=== PATIENT | male | born 1935 | race Caucasian/White ===

== ENCOUNTER 2018-10-25 09:17 | Day surgery (SDC) | payer MEDICARE, OTHER ==
[~2018-10-25] VITALS: Ht 172.7 cm; Wt 72.2 kg
[~2018-10-25 09:17] MED LIST: ACET325 PO; ATOR10 PO; ATOR20 PO; Cardizem CD 12120 MG PO; DIGO.125 PO; DILT120ERA PO; ELIQUIS2.5 MG PO; ESOM20 PO; FURO40 PO; HYDACE5 PO; HYDCHL12.5 PO; HYDROCODON-ACE1 EAC4 PO; Kaon-Cl40 MEQ/15 PO; LEVO750 PO; METO25 PO; NIFE20 PO; POTCHL20ER PO; Phenergan25 M1 PO; Prinivil10 MG PO; SPIR25 PO; Stool Softener100 MG PO; VICODIN ES 7.51 EACH PO; Ventolin Soln3 ML INH; XARELTO20 MG PO; ZOLP5; ZOLP5 PO; [UNRECOGNIZED DRUG - REMARK]; [UNRECOGNIZED DRUG - REMARK]
--- NOTE | 2018-10-25 09:56 | NUR ---
PT ADMITTED TO [facility]. AGREES WITH PLANNED SURGERY. LUNG SOUNDS CLEAR.
--- NOTE | 2018-10-25 14:17 | NUR ---
Discharge instructions reviewed with patient. Patient verbalizes understanding. Copy given to patient to take home. Patient up to Ambulate independently. Gait steady. ABLE TO URINATE WITHOUT ISSUE.Discharged via wheelchair to private car for ride home.
== END 2018-10-26 22:42 | disposition home or self-care (01) ==
LOC: ORSCMMR 09:17 → ORD 10:30 → ORSCMMR 10:30
PROVIDERS: Surgery
PROC: 0YU50JZ Supplement Right Inguinal Region with Synthetic Substitute, Open Approach (ICD-10-PCS; principal; 2018-10-25 10:30)
DX: K40.90 Unilateral inguinal hernia, without obstruction or gangrene, not specified as recurrent (principal); I10 Essential (primary) hypertension; I48.91 Unspecified atrial fibrillation; Z79.01 Long term (current) use of anticoagulants; I25.10 Atherosclerotic heart disease of native coronary artery without angina pectoris; Z87.891 Personal history of nicotine dependence; G62.9 Polyneuropathy, unspecified; Z79.899 Other long term (current) drug therapy
CPT/HCPCS: A9270-GY; C1781; J0690; J1100; J2405; J2704; J3010; J7120

== ENCOUNTER → 2018-12-29 | Outpatient (CLI) | payer MEDICARE, OTHER | END | disposition home or self-care (01) | LOC: LAB SHORT 07:43 → PLD 07:43 | DX: L57.0 Actinic keratosis (principal); L73.9 Follicular disorder, unspecified | CPT/HCPCS: 88305; 88312 ==

== ENCOUNTER 2020-08-01 23:58 | Emergency (ER) | payer MEDICARE, OTHER ==
[~2020-08-01] VITALS: Ht 177.8 cm; Wt 72.6 kg
[2020-08-02 00:11] LABS: BASOPHILS ABSOLUTE AUTO 0.05 K/mm3 (0.00-0.23); BASOPHILS PERCENT AUTO 1 % (0-2); EOSINOPHILS ABSOLUTE AUTO 0.49 K/mm3 (0.00-0.68); EOSINOPHILS PERCENT AUTO 8 % (0-6); Hematocrit 40.2 % (37.0-53.0); Hemoglobin 13.5 g/dL (13.5-17.5); IMMATURE GRAN ABSOLUTE AUTO 0.01 K/mm3 (0.00-0.10); IMMATURE GRAN PERCENT AUTO 0 % (0-1); LYMPHOCYTES ABSOLUTE AUTO 2.01 K/mm3 (0.84-5.20); LYMPHOCYTES PERCENT AUTO 32 % (21-46); MONOCYTES ABSOLUTE AUTO 0.64 K/mm3 (0.16-1.47); MONOCYTES PERCENT AUTO 10 % (4-13); Mean Corpuscular HGB 33.8 pg (26.0-34.0); Mean Corpuscular HGB Conc 33.6 g/dL (31.5-36.5); Mean Corpuscular Volume 101 fL (80-100); Mean Platelet Volume 10.5 fL (9.1-12.4); NEUTROPHILS ABSOLUTE AUTO 3.11 K/mm3 (1.96-9.15); NEUTROPHILS PERCENT AUTO 49 % (41-73); Platelet Count 233 K/mm3 (150-400); RDW Coefficient Variation 12.2 % (11.7-14.2); RDW Standard Deviation 45.4 fL (35.1-46.3); White Blood Cell Count 6.31 K/mm3 (4.00-11.30)
[2020-08-02 00:27] LABS: International Normalized Ratio 1.02; Prothrombin Time Results 10.9 Sec (9.7-11.5)
[2020-08-02 00:35] LABS: Alanine Aminotransfer (ALT/SGP 21 U/L (12-78); Albumin, Blood 3.6 g/dL (3.4-5.0); Albumin/Globulin Ratio 0.9 (0.8-1.8); Alk Phos 80 U/L (50-136); Anion Gap 6 mmol/L (6-16); Aspartate Aminotrans (AST/SGOT 28 U/L (12-37); Bilirubin, Total 0.4 mg/dL (0.1-1.0); Blood Urea Nitrogen 11 mg/dL (8-24); Bun/Creatinine Ratio 12.6 (12.0-20.0); CO2, Blood 26 mmol/L (21-32); Calcium, Blood 8.5 mg/dL (8.5-10.1); Chloride, Blood 110 mmol/L (98-108); Creatinine, Blood 0.88 mg/dL (0.60-1.20); Ethanol (Alcohol), Blood, Med 185 mg/dL; Globulin, Blood 3.8 g/dL (2.2-4.0); Glomerular Filtration Rate >60 (60-); Glucose, Blood 92 mg/dL (70-99); Potassium, Blood 4.4 mmol/L (3.5-5.5); Sodium, Blood 142 mmol/L (136-145); Total Protein, Blood 7.4 g/dL (6.4-8.2); Troponin I <0.015 ng/mL (0.000-0.040)
== END 2020-08-02 02:10 | disposition home or self-care (01) ==
LOC: ER 23:58
PROVIDERS: Emergency Medicine
DX: S06.9X9A Unspecified intracranial injury with loss of consciousness of unspecified duration, initial encounter (principal); S01.01XA Laceration without foreign body of scalp, initial encounter; F10.129 Alcohol abuse with intoxication, unspecified; Z79.899 Other long term (current) drug therapy; Z88.8 Allergy status to other drugs, medicaments and biological substances; Z79.01 Long term (current) use of anticoagulants; Z87.891 Personal history of nicotine dependence; W18.30XA Fall on same level, unspecified, initial encounter; Y90.6 Blood alcohol level of 120-199 mg/100 ml
CPT/HCPCS: 12002; 36415; 70450; 72125; 80053; 84484; 85025; 85610; 90471; 90714; 93005; 93010; 99284-25; G0480

== ENCOUNTER 2021-07-18 10:49 | Inpatient (IN) | payer MEDICARE, OTHER ==
[~2021-07-18] VITALS: Ht 172.7 cm; Wt 62.7 kg
[2021-07-18 11:48] LABS: BASOPHILS ABSOLUTE AUTO 0.03 K/mm3 (0.00-0.23); BASOPHILS PERCENT AUTO 0 % (0-2); EOSINOPHILS ABSOLUTE AUTO 0.06 K/mm3 (0.00-0.68); EOSINOPHILS PERCENT AUTO 1 % (0-6); Hematocrit 45.1 % (37.0-53.0); Hemoglobin 15.2 g/dL (13.5-17.5); IMMATURE GRAN ABSOLUTE AUTO 0.06 K/mm3 (0.00-0.10); IMMATURE GRAN PERCENT AUTO 1 % (0-1); LYMPHOCYTES ABSOLUTE AUTO 1.58 K/mm3 (0.84-5.20); LYMPHOCYTES PERCENT AUTO 14 % (21-46); MONOCYTES ABSOLUTE AUTO 1.21 K/mm3 (0.16-1.47); MONOCYTES PERCENT AUTO 11 % (4-13); Mean Corpuscular HGB 33.1 pg (26.0-34.0); Mean Corpuscular HGB Conc 33.7 g/dL (31.5-36.5); Mean Corpuscular Volume 98 fL (80-100); Mean Platelet Volume 11.5 fL (9.1-12.4); NEUTROPHILS ABSOLUTE AUTO 8.57 K/mm3 (1.96-9.15); NEUTROPHILS PERCENT AUTO 75 % (41-73); Platelet Count 279 K/mm3 (150-400); RDW Coefficient Variation 13.3 % (11.7-14.2); RDW Standard Deviation 48.4 fL (35.1-46.3); Red Blood Cell Count 4.59 M/mm3 (4.30-5.90); White Blood Cell Count 11.51 K/mm3 (4.00-11.30)
[2021-07-18 12:08] LABS: Albumin, Blood 3.9 g/dL (3.4-5.0); Bilirubin, Total 0.7 mg/dL (0.1-1.0); Bun/Creatinine Ratio 39.1 (12.0-20.0); Calcium, Blood 8.9 mg/dL (8.5-10.1); Creatinine, Blood 3.45 mg/dL (0.60-1.20); Globulin, Blood 4.1 g/dL (2.2-4.0); Potassium, Blood 5.1 mmol/L (3.5-5.5)
[2021-07-18 13:46] LABS: Source, Urine Clean Catch
[2021-07-18 13:50] LABS: Appearance, Urine Clear (Clear); Bilirubin, Urine Neg (Neg); Blood, Urine Neg (Neg); Color, Urine Yellow (P-Yellow); Glucose Qualitative, Urine Neg (Neg); Ketones, Urine Neg (Neg); Leukocyte Esterase, Urine Neg (Neg); Nitrite, Urine Neg (Neg); Protein, Urine Neg (Neg); Specific Gravity, Urine 1.025 (1.003-1.022); Urobilinogen, Urine NORM (Normal)
[2021-07-18] MEDS ORDERED: SERT50 PO (18:09)
[2021-07-18 21:05] LABS: Campylobacter Sp Not Detected (NOT DETECT); Cryptosporidium Not Detected (NOT DETECT); Cyclospora Cayetanensis Not Detected (NOT DETECT); E. Coli O157 Not Detected (NOT DETECT); Entamoeba Histolytica Not Detected (NOT DETECT); Enteroaggregative E. coli-EAEC Not Detected (NOT DETECT); Enteropathogenic E. coli-EPEC Not Detected (NOT DETECT); Enterotoxigenic E. coli-ETEC Not Detected (NOT DETECT); Giardia Lamblia Not Detected (NOT DETECT); Plesiomonas Shigelloides Not Detected (NOT DETECT); Salmonella Sp Not Detected (NOT DETECT); Shiga Toxin-prod E. coli-STEC Not Detected (NOT DETECT); Shigella/Enteroin E. coli-EIEC Not Detected (NOT DETECT); Vibrio Cholerae Not Detected (NOT DETECT); Vibrio Sp Not Detected (NOT DETECT); Yersinia Enterocolitica Not Detected (NOT DETECT)
[2021-07-18 21:06] LABS: Adenovirus F 40/41 Not Detected (NOT DETECT); Astrovirus Not Detected (NOT DETECT); Norovirus GI/GII Not Detected (NOT DETECT); Rotavirus A Not Detected (NOT DETECT); Sapovirus Not Detected (NOT DETECT)
[2021-07-18 21:35] LABS: Influenza A, PCR NEGATIVE (NEGATIVE); Influenza B, PCR NEGATIVE (NEGATIVE); Resp Syncytial Virus, PCR NEGATIVE (NEGATIVE); SARS-Cov-2 (COVID-19) PCR, MMC NEGATIVE (NEGATIVE)
--- NOTE | 2021-07-18 23:15 | NUR ---
CARE ASSUMPTION: PATIENT ARRIVED ON UNIT AT 1800. RECEIVED REPORT FROM SIGRID GOLDMAN RN. COMPLETED COVID-19 SWAB, NORMAL SALINE RUNNING TO IV @100 MLS/HR. PATIENT A&O X4. BED ALARM SET PATIENT HAS HISTORY OF FALLS. PATIENT DENIES SOB AND CHEST PAIN. PATIENT ON CIWA PROTOCOL - OBTAINED ORDER FOR BEER WITH TRAYS. CALL LIGHT IN REACH.
--- NOTE | 2021-07-19 04:23 | NUR ---
SHIFT SUMMARY: PATIENT DENIES SOB, CHEST PAIN, N/V/D. VSS T/O SHIFT, THOUGH HR <60 BPM AT TIMES R/T CHRONIC AFIB. PLEASANT AND COOPERATIVE WITH CARE. SPOUSE OF 54 YEARS IN MAY AND PATIENT IS PROCESSING HIS GRIEF - SUPPORT SYSTEM INCLUDES HIS DAUGHTER AND HIS NEIGHBOR COUPLE WHO BROUGHT HIM TO HOSPITAL. THIAMINE BAG 1 OF 3 COMPLETED ~0300 AND NORMAL SALINE IS RUNNING PER EMAR. LEFT ARM IN ARM BOARD TO KEEP AC IV FROM OCCLUDING. BED ALARM IS ON PATIENT HAS RECENT FALL HISTORY. PATIENT IS MODERATE DAILY DRINKER. WILL CONTINUE TO MONITOR AND REPORT TO ONCOMING RN.
[2021-07-19 04:35] LABS: Hematocrit 39.5 % (37.0-53.0); Hemoglobin 13.5 g/dL (13.5-17.5); Mean Corpuscular HGB 33.3 pg (26.0-34.0); Mean Corpuscular HGB Conc 34.2 g/dL (31.5-36.5); Mean Corpuscular Volume 97 fL (80-100); Mean Platelet Volume 11.8 fL (9.1-12.4); Platelet Count 220 K/mm3 (150-400); RDW Standard Deviation 46.8 fL (35.1-46.3); Red Blood Cell Count 4.06 M/mm3 (4.30-5.90); White Blood Cell Count 8.05 K/mm3 (4.00-11.30)
[2021-07-19 05:09] LABS: Anion Gap 10 mmol/L (6-16); Blood Urea Nitrogen 123 mg/dL (8-24); Bun/Creatinine Ratio 48.8 (12.0-20.0); CHOL/HDL RATIO 2.3; CO2, Blood 16 mmol/L (21-32); Calcium, Blood 7.9 mg/dL (8.5-10.1); Chloride, Blood 108 mmol/L (98-108); Cholesterol 111 mg/dL (50-200); Creatinine, Blood 2.52 mg/dL (0.60-1.20); Glomerular Filtration Rate 24 (60-); Glucose, Blood 107 mg/dL (70-99); HDL Cholesterol 49 mg/dL (>39); LDL/HDL RATIO 0.8; Low Density Lipoprotein Chol 38 mg/dL (0-110); Potassium, Blood 4.3 mmol/L (3.5-5.5); Sodium, Blood 134 mmol/L (136-145); Triglycerides 121 mg/dL (30-160); Very Low Density Lipoprot Chol 24 mg/dL (6-32)
--- NOTE | 2021-07-19 11:17 | NUR ---
Patient is sitting up in bed and alert. Patient immediately tells me about the events that led to his hospitalization and how the recent of his spouse contributed to his decline. 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 We explore sources of meaning, purpose and pt's resources and coping skills. We discuss his Tenriism beliefs and how he desires to get back to that source of strength in his life. I normalize pt's bereavement experience, encourage self-care, reinforce helpful attitudes and perspectives and provide therapeutic listening, grief support, spiritual guidance, gentle apprise counselor and prayer. Pt responds well and shows signs of increased hope and a resolve for healthier habits in his life. I will continue to remain available to patient and family.
[2021-07-19 12:28] LABS: Digoxin (Lanoxin) 0.42 ug/mL (0.80-2.00)
--- NOTE | 2021-07-19 18:36 | NUR ---
SHIFT SUMMARY A/O X4 AND COOPERATIVE OF CARE. PT CALLS APPROPITELY AND IS ABLE TO EXPRESS NEEDS. VSS THROUGHOUT SHIFT WITH O2 SATS >97% ON RA. NO REPORT OF CHEST PAIN/PRESSURE THROUGHOUT SHIFT. NO REPORT OF SOB/DYPNEA THROUGHOUT SHIFT. PT TO BE NPO AFTER MIDNIGHT FOR ENDOSCOPY AND XRAY OF UPPER GI TOMORROW. PT UP TO BEDSIDE COMMODE TODAY, STANDBY ASSIST, TOLERATED WELL. PT RECIEVING A BEER WITH MEALS (SIPPING ON BEER THROUGHOUT DAY), PT BEING MONITORED FOR ETOH W/D, ASYMPTOMATIC AT THIS TIME.
--- NOTE | 2021-07-19 20:50 | NUR ---
CALLED DR. CLARK. NOTIFIED HIM THE PLAN IS FOR PATIENT TO HAVE AN UPPER GI SCOPE WITH SMALL BOWEL FOLLOW THROUGH TOMORROW ALTHOUGH IT IS NOT FOR SURE. PATIENT IS TO RECEIVE ELIQUIS TONIGHT. PATIENT HAS AFIB, NO HX MECHANICAL VALVE. ORDERS RECEIVED TO HOLD ELIQUIS TONIGHT UNLESS PATIENT HAS MECHANICAL VALVE. CONFIRMED WITH PATIENT THAT HE DOES NOT HAVE A MECHANICAL VALVE.
--- NOTE | 2021-07-19 21:30 | NUR ---
INTITIAL NOTE: PATIENT A/OX3. DENIES PAIN. CIWA 0. STATES HE DRINKS "A SHOT OF VODKA" AT NIGHT BUT NOT EVERY NIGHT. DRINKING PROVIDED BEER DURING INITIAL ASSESSMENT. BILLY HELD PER MD FOR PROCEDURE IN AM. ON ROOM AIR. DENIES NAUSEA AND STATES HE HAS NOT HAD NAUSEA TODAY. STATES HE HAS A HX OF COLECTOMY SO HE HAS FREQUENT LIQUID STOOLS. UP TO COMMODE WITH 1 ASSIST, UNSTEADY ON HIS FEET. LIVES ALONE BUT HAS A NEIGHBOR WHO IS INVOLVED IN HIS CARE. HE BECAME TEARY WHEN TALKING ABOUT HIS WHO 1 MONTH AGO. DISCUSSED PLAN OF CARE FOR SHIFT INCLUDING NPO AFTER MIDNIGHT. CALL LIGHT IN REACH. BED ALARM ON FOR SAFETY.
--- NOTE | 2021-07-20 | NUR ---
PATIENT MADE NPO.
[2021-07-20 03:21] LABS: Base Excess Venous -12.5 mmol/L; Bicarbonate Venous 14.3 mmol/L (24.0-30.0); PCO2 Venous 38.4 mmHg (38-42)
[2021-07-20 03:22] LABS: PO2 Venous 21.1 mmHg (38-42); pH Blood Venous 7.21 (7.34-7.37)
[2021-07-20 03:41] LABS: BASOPHILS ABSOLUTE AUTO 0.03 K/mm3 (0.00-0.23); BASOPHILS PERCENT AUTO 0 % (0-2); EOSINOPHILS PERCENT AUTO 3 % (0-6); Hematocrit 41.1 % (37.0-53.0); Hemoglobin 13.7 g/dL (13.5-17.5); IMMATURE GRAN ABSOLUTE AUTO 0.05 K/mm3 (0.00-0.10); IMMATURE GRAN PERCENT AUTO 1 % (0-1); LYMPHOCYTES ABSOLUTE AUTO 1.12 K/mm3 (0.84-5.20); LYMPHOCYTES PERCENT AUTO 14 % (21-46); MONOCYTES ABSOLUTE AUTO 1.14 K/mm3 (0.16-1.47); MONOCYTES PERCENT AUTO 14 % (4-13); Mean Corpuscular HGB Conc 33.3 g/dL (31.5-36.5); Mean Corpuscular Volume 99 fL (80-100); Mean Platelet Volume 11.8 fL (9.1-12.4); NEUTROPHILS ABSOLUTE AUTO 5.52 K/mm3 (1.96-9.15); NEUTROPHILS PERCENT AUTO 69 % (41-73); Platelet Count 231 K/mm3 (150-400); RDW Coefficient Variation 13.1 % (11.7-14.2); RDW Standard Deviation 48.3 fL (35.1-46.3); Red Blood Cell Count 4.15 M/mm3 (4.30-5.90); White Blood Cell Count 8.06 K/mm3 (4.00-11.30)
[2021-07-20 04:06] LABS: Albumin, Blood 3.1 g/dL (3.4-5.0); Bilirubin, Total 0.5 mg/dL (0.1-1.0); Bun/Creatinine Ratio 53.8 (12.0-20.0); Calcium, Blood 8.2 mg/dL (8.5-10.1); Creatinine, Blood 1.43 mg/dL (0.60-1.20); Globulin, Blood 3.2 g/dL (2.2-4.0); Potassium, Blood 4.6 mmol/L (3.5-5.5); Total Protein, Blood 6.3 g/dL (6.4-8.2)
--- NOTE | 2021-07-20 05:01 | NUR ---
CRITICAL VBG LABS RECEIVED OF PH 7.21 AND PO2 21.1. PLACED PATIENT ON CONTINUOUS O2 MONITOR. HIS HANDS ARE COLD AND IT IS DIFFICULT GETTING A READING ON THEM, HOWEVER THE EAR PROBE SPO2 SHOWS SPO2 IN UPPER 90'S TO 100. HE DENIES SHORTNESS OF BREATH. FINGERS ARE COLD AND DISCOLORED BUT PATIENT STATES THIS IS NORMAL FOR HIM. OBTAINED VITAL SIGNS. CALLED DR. CARLSON AND NOTIFIED HER OF CRITICAL LABS. NOTIFIED HER OF PATIENT'S LIQUID STOOLS THIS SHIFT AND THAT HE STATES HE HAS HAD LIQUID STOOLS FOR SEVERAL MONTHS. DISCUSSED PLAN FOR GI INTERVENTION TODAY. DISCUSSED IV FLUIDS AND OXYGEN. NOT SURE WHY HIS OXYGEN ON THE VBG IS LOW BUT HIS SPO2 IS RECORDING IN THE 90'S. SHE ORDERED TO PLACE PATIENT ON 2L O2, GIVE NS BOLUS AND RETURN TO NS AT 125 MLS/HR, THEN OBTAIN ABG AT 0515 ONCE THOSE INTERVENTIONS ARE DONE. NOTIFIED RESPIRATORY THERAPY.
[2021-07-20 05:24] LABS: PCO2 Arterial 24.2 mmHg (35-45); PO2 Arterial 138 mmHg (80-100); pH Blood Arterial 7.27 (7.35-7.45)
--- NOTE | 2021-07-20 06:12 | NUR ---
CALLED DR. CARLSON WITH ABG RESULTS. PH 7.27, PO2 138. SHE LOOKED UP THE REST OF THE RESULTS. I HAD ALREADY TAKEN OFF THE PATIENT'S OXYGEN. SHE SAID TO CONTINUE IV FLUIDS CURRENTLY ORDERED, NORMAL SALINE AT 125 MLS/HR. ALSO ORDERED TO TAKE OFF OXYGEN.
--- NOTE | 2021-07-20 06:33 | NUR ---
SHIFT SUMMARY: PATIENT A/OX3. HAS DENIED PAIN THROUGHOUT THE SHIFT. ON ROOM AIR. NO TELE. CIWA 0. NPO SINCE MIDNIGHT. MULTIPLE LIQUID STOOLS. CRITICAL PH, SALINE BOLUS GIVEN PER MD. HAD CRITICALLY LOW VBG O2 BUT ABG O2 WAS HIGH. SPO2 HAS SHOWN SATS IN 90'S ON ROOM AIR. PLAN IS FOR UPPER GI WITH SMALL BOWEL FOLLOW THROUGH. ELIQUIS HELD PER MD PLAN IS FOR SCOPE TODAY. WILL CONTINUE TO MONITOR AND REPORT TO ONCOMING RN.
--- NOTE | 2021-07-20 11:21 | NUR ---
DURING MORING ROUNDS AND VITALS, THIS RN ANSWERED PT ROOM PHONE TO NOTIFY CALLER THAT PT WAS TRYING TO REST PER PT REQUEST. THE CALLER WAS PT NEIGHBOR WHOM PT APPROVED FOR DISCUSSING MEDICAL INFORMATION AND UPDATES. THE NEIGHBOR WAS UPDATED OF PT SITUATION AND POSSIBLE ENDOSCOPY NEEDING TO BE SCHEDULED. PT DAUGHTER CALLED AROUND 1040 EXPRESSING THAT SHE WAS "UPSET THAT THE NEIGHBOR WAS BEING UPDATED BEFORE I WAS." THIS RN EXPLAINED TO DAUGHTER THAT THE ONLY REASON THE NEIGHBOR WAS UPDATED AT THIS TIME WAS BECAUSE THIS RN HAPPENED TO BE IN THE ROOM WHEN NEIGHBOR WAS TRYING TO CALL PT'S ROOM. THIS RN EXPLAINED THAT RN'S TYPICALLY TRY TO CALL FAMILY MEMBERS AFTER DOCTORS HAVE DONE ROUNDS ON PT SO THE UPDATED PLANS OF DOCTORS CAN BE FORWARDED. PT DAUGHTER BEGAN TO EXPRESS CONCERNS OF NEIGHBOR STATING "MELISSA HAS BEEN GIVING MY DAD WATER PILLS AND NOW ALL OF SUDDEN MY DAD IS DEHYDRATED. THAT CONCERNS ME." AFTER PHONE CALL, THIS RN ASKED PT IF WAS TAKING WATER PILLS GIVEN TO HIM FROM NEIGHBOR. PT SAID "YES. THE WATER PILLS ARE ONES I AM SUPPOSED TO BE TAKING BUT THEY MAKE ME PISS MYSELF WHEN I AM IN TOWN. I ONLY TAKE THEM WHEN I AM EXPECTING TO BE AT HOME FOR THE DAY." THIS RN ASKED IF PT KNEW WHY HE IS SUPPOSED TO BE TAKING THE WATER PILLS, PT SAID "I AM NOT SURE WHY." PT STATED THAT A "DR BOND FROM WHERE HE USED TO LIVE IS THE DOCTOR THAT PRESCRIBED THEM."
[2021-07-20 14:46] LABS: Bun/Creatinine Ratio 45.1 (12.0-20.0); Calcium, Blood 7.7 mg/dL (8.5-10.1); Creatinine, Blood 1.22 mg/dL (0.60-1.20); Potassium, Blood 4.3 mmol/L (3.5-5.5)
--- NOTE | 2021-07-20 15:30 | NUR ---
PT ARRIVED TO UNIT AT 1530. A&OX4, VSS, O2 SATS 96% ON RA. PT DENIES PAIN, DENIES N/V, DENIES SOB/CP. RESTING COMFORTABLY IN BED, CALL LIGHT IN REACH.
--- NOTE | 2021-07-20 16:46 | NUR ---
TRANSFER UPDATE REPORT GIVEN TO NIGHTCLUB MANAGER AT 1500. PT LEFT PCU VIA HOSPITAL BED AT 1520 AND ON RA. PT BELONGINGS BAGGED AND WITH PT DURING TRANSFER. PT CONTINUED TO RECIEVE BIRB VIA IV DURING TRANSFER.
--- NOTE | 2021-07-20 18:12 | NUR ---
PT ADVANCED TO FULL LIQUID DIET, TOLERATING WELL. DENIES N/V. NO ACUTE CHANGES SINCE ARRIVAL TO UNIT. WILL CONTINUE TO MONITOR AND REPORT TO ONCOMING RN.
[2021-07-21 04:12] LABS: Anion Gap 7 mmol/L (6-16); Blood Urea Nitrogen 37 mg/dL (8-24); CO2, Blood 20 mmol/L (21-32); Calcium, Blood 7.9 mg/dL (8.5-10.1); Chloride, Blood 113 mmol/L (98-108); Creatinine, Blood 0.97 mg/dL (0.60-1.20); Glomerular Filtration Rate >60 (60-); Glucose, Blood 101 mg/dL (70-99); Sodium, Blood 140 mmol/L (136-145)
[2021-07-21 05:00] LABS: PCO2 Arterial 37.4 mmHg (35-45); PO2 Arterial 53.5 mmHg (80-100); pH Blood Arterial 7.41 (7.35-7.45)
--- NOTE | 2021-07-21 05:55 | NUR ---
SHIFT SUMMARY: KAYLIN IS A&OX4 WITH THE EXCEPTION OF ONE EPISODE THIS MORNING WHERE HE EXHIBITED CONFUSION. HE DID REORIENT WITHOUT DIFFICULTY. HE IS COOPERATIVE AND PLEASANT WITH STAFF. VSS, TOLERATING PO INTAKE, URINATING WITHOUT DIFFICULTY, AND TWO BOWEL MOVEMENTS THIS SHIFT. HE IS A STANDBY ASSIST TO THE BEDSIDE COMMODE, ATTENDS IN PLACE FOR OCCASIONAL INCONTINENCE. IV TO R FOREARM PATENT, SCDs IN PLACE. HE DOES HAVE A HISTORY OF POOR CIRCULATION TO HIS HANDS. HE IS LYING IN BED WITH HIS EYES CLOSED AND EVEN, UNLABORED RESPIRATIONS. WCTM UNTIL REPORT IS GIVEN TO DAY SHIFT RN.
--- NOTE | 2021-07-21 17:02 | NUR ---
SHIFT SUMMARY PT AOX4; GALENA. PT MEDICATED FOR DIARRHEA. PT STILL HAVING WATERY STOOLS. CIWA WNL. AWAITS FOR ENDOSCOPY POSSIBLY TOMORROW. DENIES PAIN OR ANY NAUSEA. BED IS IN THE LOWEST POSITION AND CALL LIGHT WITHIN REACH
[2021-07-22 00:19] LABS: Influenza A, PCR NEGATIVE (NEGATIVE); Influenza B, PCR NEGATIVE (NEGATIVE); Resp Syncytial Virus, PCR NEGATIVE (NEGATIVE); SARS-Cov-2 (COVID-19) PCR, MMC NEGATIVE (NEGATIVE)
--- NOTE | 2021-07-22 05:57 | NUR ---
SHIFT SUMMARY AOX4. PT REMAIN TO HAVE DIARRHEA LAST NIGHT X2. PO IMODIUM GIVEN X1. PT DENIES ANY SIGNS OF WITHDRAWAL. VSS. PT DENIES CHEST PAIN AND SOB. TOLERATING FULL LIQUID DIET. DENIES NAUSEA AND VOMITING. NPO AFTER MIDNIGHT. PLAN FOR ENDOCSCOPY TODAY. ELIQUIS WAS HELD. PT SLEPT GOOD OVERNIGHT. DENIES ANY PAIN. STILL FEELS A LITTLE WOBBLE WHEN GETTING UP. SBA WITH FWW IN BSC. SODIUM BICARB INFUSING. VOIDING FREQUENT WITH SMALL AMOUNTS. CALL LIGHT WITHIN REACH. BED IN LOW POSITION. WILL PROVIDE REPORT TO ONCOMING NURSE.
[2021-07-22] MEDS ORDERED: Acetaminophen650 M1 PO (09:54)
[2021-07-22] MEDS ORDERED: LOPE2C PO (09:55)
[2021-07-22] MEDS ORDERED: ASPIR 8181 M1 PO (09:55)
[2021-07-22] MEDS ORDERED: MELATONIN5 M1 PO (09:57)
--- NOTE | 2021-07-22 10:40 | NUR ---
Upon receiving a referral for spiritual care, I visit patient. We discuss his D/C plan for spiritual and emotional health, looking at his coping skills and resources. We explore possible avenues of support and people that he might draw from to move in a healthy trajectory for spirit, mind and body. I provide spiritual guidance, gentle nurses' association counselor, bereavement support and prayer. Pt responds well and shows signs of resolve to embrace life and turn his life in a positive direction. I will continue to remain available to pt.
--- NOTE | 2021-07-22 14:40 | NUR ---
DISCHARGE PT REQUESTED TO DISCHARGE HOME PRIOR TO HAVING THERAPY, HE VERBALIZED THAT HE WAS UNWILLING TO WAIT FOR THERAPY BEFORE LEAVING. PT EDUCATED ABOUT INCREASED RISK FOR FALLS SINCE THERAPY WOULD BE UNABLE TO MAKE AN APPROPRIATE THERAPY RECOMMENDATION. PT VERBALIZED UNDERSTANDING INCREASED RISK. PT WAS PROVIDED WITH WRITTEN AND VERBAL DISCHARGE INSTRUCTIONS, HE REPORTED UNDERSTANDING. PT EDUCATED TO FOLLOW UP WITH PCP REGARDING GI CONCERNS. PT WAS ABLE TO TOLERATE A REGULAR DIET WITHOUT ISSUES PRIOR TO DISCHARGE. PT REPORTS DIFFICULTY CHEWING AT BASELINE BECAUSE HE HAS TEMPERARY DENTURES. PT WAS EDUCATED TO ACCOMODATE FOR DIFFICULTY CHEWING BY CONSUMING SOFT FOODS AND ALSO ENCOURAGED TO CHEW WELL FOR EASE OF SWALLOWING. PT WAS ABLE TO AMBULATE INDEPENDENTLY FROM THE BED TO THE BATHROOM PRIOR TO DISCHARGE. PT REPORTED SOME DIZZINESS, BP WAS CHECKED PRIOR TO DISCHARGE AND WAS WNL, HR ALSO WNL. PT'S DAUGHTER WAS UPDATED PER PT REQUEST AND NOTIFIED THAT HOME HEALTH WOULD STILL BE ARRANGING A TIME TO SEE THE PT AT HOME. PT WAS ASSISTED OUT IN A WHEELCHAIR BY AQUILINO RUIZ CNA. PT DISCHARGED FROM THE HOSPITAL AT 1325. BEDSIDE COMMODE AND WALKER TO BE DELIVERED TO PT'S HOME BY ANGELINA.
--- NOTE | 2021-07-23 14:39 | NUR ---
Received referral from nurse career technical supervisor (Christie Bedolla) on 07/22/2021. Patient discharged 07/22/2021 with orders for home health and elected [facility]. Contacted patient at number listed on demographic sheet today- 07/23/2021 to further discuss the above. Patient is agreeable to the above. Discussed homebound status definition with patient. Patient verbalized understanding. Discussed what home health is vs what it is not (in home caregivers/housekeeping). Patient verbalized understanding. Discussed the next steps in the process of an initial assessment to determine frequency of visits. Again patient verbalized understanding. Offered a chance for patient to ask questions regarding the above of which there were none. Gathered all supporting documentation for referral (face sheet, face to face, med list, H&P, discharge summary, and most recent PT assessment) and sent to [facility] for review. No further interventions required. Ivy Dean Referral Liaison
== END 2021-07-22 13:23 | disposition home health service (06) | DRG 683 ==
LOC: ER 10:49 → PCU 16:21 → SURS 07-20 15:22
PROVIDERS: Family Medicine; Internal Medicine; Physician Assistant; ADMIT Internal Medicine
DX: N17.9 Acute kidney failure, unspecified (principal); E87.2 Acidosis; E44.0 Moderate protein-calorie malnutrition; E87.1 Hypo-osmolality and hyponatremia; K52.9 Noninfective gastroenteritis and colitis, unspecified; Z68.21 Body mass index [BMI] 21.0-21.9, adult; E86.0 Dehydration; Z20.822 Contact with and (suspected) exposure to COVID-19; I10 Essential (primary) hypertension; E78.5 Hyperlipidemia, unspecified; Z90.49 Acquired absence of other specified parts of digestive tract; Z98.890 Other specified postprocedural states; K21.9 Gastro-esophageal reflux disease without esophagitis; Z98.42 Cataract extraction status, left eye; Z98.41 Cataract extraction status, right eye; Z79.899 Other long term (current) drug therapy; Z87.891 Personal history of nicotine dependence; I48.0 Paroxysmal atrial fibrillation
CPT/HCPCS: 0097U; 0241U; 36415; 36600; 51701; 70450; 74176; 80048; 80053; 80061; 80162; 81003; 82803; 82947; 83735; 85025; 85027; 93005; 93010; 99285-25; A9270; J3411; J7030; J7040; J7042

== ENCOUNTER 2022-05-27 14:46 | Inpatient (IN) | payer MEDICARE, OTHER ==
[~2022-05-27] VITALS: Ht 175.3 cm; Wt 61.9 kg
[~2022-05-27 14:46] MED LIST changes: +ASPIR 8181 M1 PO; +Acetaminophen650 M1 PO; +LOPE2C PO; +MELATONIN5 M1 PO; +SERT50 PO
[2022-05-27 15:15] LABS: BASOPHILS ABSOLUTE AUTO 0.04 K/mm3 (0.00-0.23); BASOPHILS PERCENT AUTO 0 % (0-2); EOSINOPHILS ABSOLUTE AUTO 0.17 K/mm3 (0.00-0.68); EOSINOPHILS PERCENT AUTO 1 % (0-6); Hematocrit 40.5 % (37.0-53.0); Hemoglobin 13.5 g/dL (13.5-17.5); IMMATURE GRAN ABSOLUTE AUTO 0.08 K/mm3 (0.00-0.10); IMMATURE GRAN PERCENT AUTO 1 % (0-1); LYMPHOCYTES ABSOLUTE AUTO 1.32 K/mm3 (0.84-5.20); LYMPHOCYTES PERCENT AUTO 10 % (21-46); MONOCYTES ABSOLUTE AUTO 1.16 K/mm3 (0.16-1.47); MONOCYTES PERCENT AUTO 8 % (4-13); Mean Corpuscular HGB Conc 33.3 g/dL (31.5-36.5); Mean Corpuscular Volume 96 fL (80-100); Mean Platelet Volume 10.8 fL (9.1-12.4); NEUTROPHILS ABSOLUTE AUTO 11.09 K/mm3 (1.96-9.15); NEUTROPHILS PERCENT AUTO 80 % (41-73); Platelet Count 385 K/mm3 (150-400); RDW Coefficient Variation 13.2 % (11.7-14.2); RDW Standard Deviation 46.6 fL (35.1-46.3); Red Blood Cell Count 4.22 M/mm3 (4.30-5.90); White Blood Cell Count 13.86 K/mm3 (4.00-11.30)
[2022-05-27 15:32] LABS: International Normalized Ratio 1.02; Prothrombin Time Results 10.7 Sec (9.7-11.5)
[2022-05-27 15:58] LABS: Albumin, Blood 3.6 g/dL (3.4-5.0); Albumin/Globulin Ratio 0.8 (0.8-1.8); Bilirubin, Total 0.6 mg/dL (0.1-1.0); Bun/Creatinine Ratio 11.9 (12.0-20.0); Calcium, Blood 9.3 mg/dL (8.5-10.1); Creatinine, Blood 4.36 mg/dL (0.60-1.20); Globulin, Blood 4.4 g/dL (2.2-4.0); Potassium, Blood 5.3 mmol/L (3.5-5.5)
[2022-05-27 18:03] LABS: Source, Urine Clean Catch
[2022-05-27 18:06] LABS: Appearance, Urine Clear (Clear); Bilirubin, Urine Neg (Neg); Blood, Urine 2+ (Neg); Color, Urine Amber (P-Yellow); Glucose Qualitative, Urine Neg (Neg); Ketones, Urine Neg (Neg); Leukocyte Esterase, Urine 2+ (Neg); Nitrite, Urine Neg (Neg); Protein, Urine 2+ (Neg); Urobilinogen, Urine NORM (Normal)
[2022-05-27 18:17] LABS: Bacteria Mod /hpf; Squamous Epithelial Cells Few /hpf (Few); Transitional Epithelial Cells Few /hpf (0-Rare)
[2022-05-27 19:55] LABS: Phosphorus, Blood 7.8 mg/dL (2.5-4.9)
[2022-05-28 05:05] LABS: BASOPHILS ABSOLUTE AUTO 0.04 K/mm3 (0.00-0.23); BASOPHILS PERCENT AUTO 0 % (0-2); EOSINOPHILS ABSOLUTE AUTO 0.09 K/mm3 (0.00-0.68); EOSINOPHILS PERCENT AUTO 1 % (0-6); Hematocrit 37.4 % (37.0-53.0); Hemoglobin 12.5 g/dL (13.5-17.5); IMMATURE GRAN ABSOLUTE AUTO 0.06 K/mm3 (0.00-0.10); IMMATURE GRAN PERCENT AUTO 0 % (0-1); LYMPHOCYTES ABSOLUTE AUTO 0.95 K/mm3 (0.84-5.20); LYMPHOCYTES PERCENT AUTO 7 % (21-46); MONOCYTES ABSOLUTE AUTO 1.14 K/mm3 (0.16-1.47); MONOCYTES PERCENT AUTO 8 % (4-13); Mean Corpuscular HGB 31.4 pg (26.0-34.0); Mean Corpuscular HGB Conc 33.4 g/dL (31.5-36.5); Mean Corpuscular Volume 94 fL (80-100); Mean Platelet Volume 10.8 fL (9.1-12.4); NEUTROPHILS ABSOLUTE AUTO 12.38 K/mm3 (1.96-9.15); NEUTROPHILS PERCENT AUTO 84 % (41-73); Platelet Count 356 K/mm3 (150-400); RDW Standard Deviation 44.6 fL (35.1-46.3); Red Blood Cell Count 3.98 M/mm3 (4.30-5.90); White Blood Cell Count 14.66 K/mm3 (4.00-11.30)
--- NOTE | 2022-05-28 05:17 | NUR ---
ANODE MACHINE OPERATOR SUMMARY: A&Ox2-3 WITH MILD CONFUSION BUT IS REDIRECTABLE. DOES NOT USE CALL LIGHT BUT IS ABLE TO COMMUNICATE NEEDS EFFECTIVELY WHEN STAFF PRESENT.ARRIVED TO FLOOR WITH WORTHY BUT C / O URGENCY AND PRESSURE SO WAS DC d PER EDUARDO. HAS NOT VOIDED SINCE REMOVAL, BUT BLADDER SCAN SHOWS NO RETENTION. IV THIAMINE COMPLETED AND IV FLUIDS RUNNING AT 150mL/hr VIA RIGHT FA. CIWA q4h TO ASSESS FOR WITHDRAWAL Sx: SCORE x2 >5. LAST ETOH BEVERAGE WAS SEVEN DAYS AGO. 1-2PA W/GB AND WALKER. UNSTEADY ON FEET. TELE AFIB @ 101bpm AND REACHING TO 140s AND 150s WITH EXERTION. PRN LOPRESSOR 5MG ADMINISTERED IV @ 0330. BRUISING SCATTERED T/O IN VARIED STAGES OF HEALING SECONDARY TO MULTIPLE FALLS. DAUGHTER, LISA REYES, IS HIS POA, BUT SHE LIVES IN [place]. PHONE NUMBER IN PT CHART. LABS DRAWN THIS MORNING. CAMERA SURVEILLANCE INITIATED DUE TO FORGETFULNESS. NO S/Sx CRANIAL CSF LEAK. WILL REPORT TO ONCOMING RN.
[2022-05-28 05:38] LABS: Bun/Creatinine Ratio 13.1 (12.0-20.0); Calcium, Blood 8.4 mg/dL (8.5-10.1); Creatinine, Blood 4.36 mg/dL (0.60-1.20); Potassium, Blood 4.6 mmol/L (3.5-5.5)
--- NOTE | 2022-05-28 15:02 | NUR ---
ELIU GAVE THIS RN LAURAL PERMISSION TO REPORT TO LISA SPENCE DAUGHTER, MELISSA CLARKE, AND ASHWIN SHARIF REPORTED TO DESIGN EDITOR, DESIGN EDITOR IN ROOM NOW WITH MELISSA CLARKE
--- NOTE | 2022-05-28 15:22 | NUR ---
ASSEMBLY LINE ROBOT OPERATOR CONTACTED LISA SPENCE DAUGHTER, PER DAUGHTER WISHES, NO INFORMATION OR VISITNG TO BE GIVEN TO MELISSA CLARKE, ASSEMBLY LINE ROBOT OPERATOR AND CHARGE NURSE TYRESE GRAY IN ROOM WITH MELISSA CLARKE
--- NOTE | 2022-05-28 17:17 | NUR ---
PATIENT SLEEPING, ALERT AND ORIENTED TO SELF, POOR SHORT TERM MEMORY, UNABLE TO STATE PLACE AND TIME, PATIENT STATUS MADE CONFIDENTIAL PER POA DAUGHTER LISA, PATIENT PLEASANT AND RESTING THE LAST HALF OF THE DAY, ATTENDS CDI, INCONTINENT. PLEASANT TO CARE, WAKES EASILY, BED ALARM ON, CALL LIGHT WITH IN REACH
[2022-05-28 20:20] LABS: Bun/Creatinine Ratio 16.3 (12.0-20.0); Calcium, Blood 8.2 mg/dL (8.5-10.1); Creatinine, Blood 3.32 mg/dL (0.60-1.20); Potassium, Blood 4.1 mmol/L (3.5-5.5)
[2022-05-29 05:06] LABS: BASOPHILS ABSOLUTE AUTO 0.05 K/mm3 (0.00-0.23); BASOPHILS PERCENT AUTO 1 % (0-2); EOSINOPHILS ABSOLUTE AUTO 0.26 K/mm3 (0.00-0.68); EOSINOPHILS PERCENT AUTO 3 % (0-6); Hematocrit 31.5 % (37.0-53.0); Hemoglobin 10.6 g/dL (13.5-17.5); IMMATURE GRAN ABSOLUTE AUTO 0.04 K/mm3 (0.00-0.10); IMMATURE GRAN PERCENT AUTO 1 % (0-1); LYMPHOCYTES ABSOLUTE AUTO 1.07 K/mm3 (0.84-5.20); LYMPHOCYTES PERCENT AUTO 14 % (21-46); MONOCYTES ABSOLUTE AUTO 0.75 K/mm3 (0.16-1.47); MONOCYTES PERCENT AUTO 10 % (4-13); Mean Corpuscular HGB 31.5 pg (26.0-34.0); Mean Corpuscular HGB Conc 33.7 g/dL (31.5-36.5); Mean Corpuscular Volume 94 fL (80-100); Mean Platelet Volume 11.1 fL (9.1-12.4); NEUTROPHILS ABSOLUTE AUTO 5.56 K/mm3 (1.96-9.15); NEUTROPHILS PERCENT AUTO 72 % (41-73); Platelet Count 280 K/mm3 (150-400); RDW Coefficient Variation 13.1 % (11.7-14.2); RDW Standard Deviation 44.6 fL (35.1-46.3); Red Blood Cell Count 3.36 M/mm3 (4.30-5.90); White Blood Cell Count 7.73 K/mm3 (4.00-11.30)
--- NOTE | 2022-05-29 05:21 | NUR ---
SHIFT SUMMARY Pt. has been resting quietly with eyes closed throughout most of shift. Has gotten oob to use br a few times this shift without calling for assistance and bed alarm sounding. Ambulates with one assist to br with fww. Oriented to self with moments of awareness to place and situation. Pleasant and cooperative with care. Bed alarm active and call light within reach.
[2022-05-29 05:56] LABS: Bun/Creatinine Ratio 16.8 (12.0-20.0); Calcium, Blood 8.2 mg/dL (8.5-10.1); Creatinine, Blood 2.8 mg/dL (0.60-1.20)
--- NOTE | 2022-05-29 19:23 | NUR ---
SHIFT SUMMARY PTN WITH BED ALARM ON, CALLS OFTEN BY ACCIDENT, AND THEN SOMETIMES FORGETS TO CALL WHEN HE NEEDS UP TO BATHROOM. PTN WAS CONTINENT, BUT REPORTED LOOSE WATERY STOOLS. GI PANEL ORDERED. PTN NOTABLY CONFUSED AT TIMES, BUT AT OTHER TIMES CONVERSED WITH APPROPRIATE ORIENTATION. DAUGHTER LISA CALLED A COUPLE OF TIMES THIS SHIFT, ASKING IF WE KNEW WHERE PTN WALLET WAS, AND SECOND TIME TO CHECK IN. WALLET WAS PLACED IN CLOSET WITH BELONGINGS, LOCKED, AND DAUGHTER NOTIFIED OF FINDINGS. DAUGHTER LISA FROM [place] AND WILL BE HERE ON THURSDAY TO HELP WITH [facility] PAPERWORK AND PLACEMENT. TELEMETRY CALLED ON A COUPLE OF OCCASIONS FOR TACHY HR, WHICH OCCURED WHEN HE WAS UP TO THE BATHROOM. HOWEVER, PTN AFIB, AND ON MANUAL CHECKS AFTER, DOWN TO 100 AND 82. CONTINUE TO MONITOR.
[2022-05-30 04:46] LABS: BASOPHILS ABSOLUTE AUTO 0.03 K/mm3 (0.00-0.23); BASOPHILS PERCENT AUTO 0 % (0-2); EOSINOPHILS ABSOLUTE AUTO 0.33 K/mm3 (0.00-0.68); EOSINOPHILS PERCENT AUTO 5 % (0-6); Hematocrit 33.8 % (37.0-53.0); Hemoglobin 11.2 g/dL (13.5-17.5); IMMATURE GRAN ABSOLUTE AUTO 0.02 K/mm3 (0.00-0.10); IMMATURE GRAN PERCENT AUTO 0 % (0-1); LYMPHOCYTES ABSOLUTE AUTO 1.11 K/mm3 (0.84-5.20); LYMPHOCYTES PERCENT AUTO 16 % (21-46); MONOCYTES ABSOLUTE AUTO 0.74 K/mm3 (0.16-1.47); MONOCYTES PERCENT AUTO 11 % (4-13); Mean Corpuscular HGB 31.3 pg (26.0-34.0); Mean Corpuscular HGB Conc 33.1 g/dL (31.5-36.5); Mean Corpuscular Volume 94 fL (80-100); Mean Platelet Volume 10.8 fL (9.1-12.4); NEUTROPHILS ABSOLUTE AUTO 4.54 K/mm3 (1.96-9.15); NEUTROPHILS PERCENT AUTO 67 % (41-73); Platelet Count 301 K/mm3 (150-400); RDW Coefficient Variation 13.1 % (11.7-14.2); RDW Standard Deviation 45.2 fL (35.1-46.3); Red Blood Cell Count 3.58 M/mm3 (4.30-5.90); White Blood Cell Count 6.77 K/mm3 (4.00-11.30)
[2022-05-30 05:14] LABS: Bun/Creatinine Ratio 17.6 (12.0-20.0); Calcium, Blood 8.6 mg/dL (8.5-10.1); Creatinine, Blood 1.76 mg/dL (0.60-1.20)
--- NOTE | 2022-05-30 05:19 | NUR ---
SHIFT SUMMARY 86 YR M ADMITTED ON 05/27/22 FOR ARF. FULL CODE. NO ACUTE CHANGES THIS SHIFT. PT HAS BEEN PLEASANT, LUCID, AND COOPERATIVE THIS SHIFT. VERY LITTLE CONFUSION NOTED. HE HAS BEEN USING THE CALL LIGHT WHEN HE NEEDS TO USE THE BATHROOM, AND HAS HAD NO LOOSE STOOLS THIS SHIFT. HE STATES THAT HE IS BORED WITH LAYING AROUND ALL THE TIME AND HE WANTS TO GO HOME BUT HE FULLY UNDERSTANDS THAT HE WILL LIKELY BE HERE FOR ANOTHER FEW DAYS AT LEAST UNTIL HIS DAUGHTER GETS HERE FROM [place]. HE WAS OFFERED PLAYING CARDS, WRITING AND COLORING MATERIAL TO KEEP HIM OCCUPIED BUT HE REFUSED THESE ITEMS. HIS IV IN HIS RIGHT ARM WAS LEAKING SO IT WAS DC'D AND A NEW ONE WAS INSERTED IN HIS LEFT FOREARM.
[2022-05-30 05:28] LABS: Adenovirus F 40/41 Not Detected (NOT DETECT); Astrovirus Not Detected (NOT DETECT); Campylobacter Sp Not Detected (NOT DETECT); Cryptosporidium Not Detected (NOT DETECT); Cyclospora Cayetanensis Not Detected (NOT DETECT); E. Coli O157 Not Detected (NOT DETECT); Entamoeba Histolytica Not Detected (NOT DETECT); Enteroaggregative E. coli-EAEC Not Detected (NOT DETECT); Enteropathogenic E. coli-EPEC Not Detected (NOT DETECT); Enterotoxigenic E. coli-ETEC Not Detected (NOT DETECT); Giardia Lamblia Not Detected (NOT DETECT); Norovirus GI/GII Not Detected (NOT DETECT); Plesiomonas Shigelloides Not Detected (NOT DETECT); Rotavirus A Not Detected (NOT DETECT); Salmonella Sp Not Detected (NOT DETECT); Sapovirus Not Detected (NOT DETECT); Shiga Toxin-prod E. coli-STEC Not Detected (NOT DETECT); Shigella/Enteroin E. coli-EIEC Not Detected (NOT DETECT); Vibrio Cholerae Not Detected (NOT DETECT); Vibrio Sp Not Detected (NOT DETECT); Yersinia Enterocolitica Not Detected (NOT DETECT)
--- NOTE | 2022-05-30 17:38 | NUR ---
SHIFT SUMMARY PTN ALERT AND ORIENTED EARLY IN DAY, BUT DAY PROGRESSED PTN WAS MORE CONFUSED. HE TOOK HIS TELEMETRY OFF ONCE, AND TRIED TO TAKE IT OFF A COUPLE MORE TIMES STATING THAT HE WANTED TO HAVE IT OFF WHILE HE TOOK A NAP. HE WAS REMINDED WHY THE TELEMETRY MONITORING WAS ON, AND THEN HE WAS AGREEABLE TO KEEP IT ON. PTN FORGOT TO USE CALL LIGHT ON SEVERAL OCCASIONS, BUT WITH THE CHAIR AND BED ALARM WE WERE ABLE TO GET TO HIM, AND HE REMAINED SAFE FOR TRANSFERS. PTN HAD ONE VISITOR TODAY, AND EARLIER SOMEONE BROUGHT A PHONE IN THAT BELONSG TO THE PTN, BUT STRICT INSTRUCTIONS FROM DAUGHTER LISA THAT HE IS NOT TO HAVE THE PHONE. SHE WILL PICK THE PHONE UP ON THURSDAY WHEN SHE ARRIVES. PTN BUSY TODAY BETWEEN MOVING FROM BED TO CHAIR, TO BATHROOM, BACK TO BED, ETC. VERY COOPERATIVE AND POLITE. CONTINUE TO MONITOR.
--- NOTE | 2022-05-31 04:16 | NUR ---
SHIFT SUMMARY; NO ACUTE CHANGES OVERNIGHT. THE PT IS AXO X2 T/O THE NIGHT. THE PT IS PLEASANTLY CONFUSED BUT EASILY DIRECTABLE. THE PT IS IMPULSIVE, BED ALARM ON FOR SAFETY. THE PT GOT UP ONCE LAST NIGHT BY HIMSELF AND I RECIEVED A CALL STATING THAT THE PTS HEART RATE WAS 160 DURING THAT TIME. PT DOES NOT TOLERATE EXERTION. WHEN THE PT IS LYING OR EVEN SITTING AT THE BEDSIDE THE PTS HEART RATE IS 70/80'S. THE PT USED THE BEDSIDE URINAL FOR THE REMAINDER OF THE SHIFT. THE PT DENIES ANY PAIN, CHEST PAIN/PRESSURE OR SOB THIS SHIFT. CURRENLTY THE PT IS RESTING IN THE BED WITH THE BED IN THE LOWEST POSITION AND THE CALL LIGHT AT BEDSIDE.
[2022-05-31 04:53] LABS: BASOPHILS ABSOLUTE AUTO 0.04 K/mm3 (0.00-0.23); BASOPHILS PERCENT AUTO 1 % (0-2); EOSINOPHILS ABSOLUTE AUTO 0.36 K/mm3 (0.00-0.68); EOSINOPHILS PERCENT AUTO 6 % (0-6); Hematocrit 31.2 % (37.0-53.0); Hemoglobin 10.3 g/dL (13.5-17.5); IMMATURE GRAN ABSOLUTE AUTO 0.02 K/mm3 (0.00-0.10); IMMATURE GRAN PERCENT AUTO 0 % (0-1); LYMPHOCYTES ABSOLUTE AUTO 1.11 K/mm3 (0.84-5.20); LYMPHOCYTES PERCENT AUTO 17 % (21-46); MONOCYTES ABSOLUTE AUTO 0.86 K/mm3 (0.16-1.47); MONOCYTES PERCENT AUTO 14 % (4-13); Mean Corpuscular HGB 31.2 pg (26.0-34.0); Mean Corpuscular Volume 95 fL (80-100); Mean Platelet Volume 10.9 fL (9.1-12.4); NEUTROPHILS PERCENT AUTO 63 % (41-73); Platelet Count 255 K/mm3 (150-400); RDW Coefficient Variation 13.2 % (11.7-14.2); White Blood Cell Count 6.39 K/mm3 (4.00-11.30)
[2022-05-31 05:12] LABS: Bun/Creatinine Ratio 18.8 (12.0-20.0); Calcium, Blood 8.2 mg/dL (8.5-10.1); Creatinine, Blood 1.38 mg/dL (0.60-1.20); Potassium, Blood 4.5 mmol/L (3.5-5.5)
--- NOTE | 2022-05-31 09:30 | NUR ---
RN GAVE REPORT TO ONCOMING NURSE FREDA
[2022-05-31] MEDS ORDERED: DIGOX125 MC1 PO (17:56)
[2022-05-31] MEDS ORDERED: ALLEGRA ALLERG180 MG PO (17:57)
[2022-05-31] MEDS ORDERED: Zestril30 MG PO (17:57)
[2022-05-31] MEDS ORDERED: B-100 COMPLEX100 MG PO (17:59)
--- NOTE | 2022-05-31 18:05 | NUR ---
CONVERSATION WITH DAUGHTER: SPOKE AT LENGTH THE THE PATIENT'S DAUGHTER LISA. SHE CONTINUES TO PLAN TO ARRIVE IN [place] ON THURSDAY, LATER IN THE EVENING. SHE HAD MULTIPLE QUESTIONS ABOUT WHAT IS GOING ON WITH THE PATIENT. SHE PLANS ON TAKING HIM HOME WITH HER. SHE WILL BE IN [place] FOR ONE WEEK. SHE REPORTS THAT SHE HAS DURABLE POWER OF BARREL DRILLER. SHE IS GOING TO WORK ON WHAT SHE NEEDS TO ALSO GAIN ACCESS TO HIS FINANCES TO ASSIST WITH PAYING HIS BILLS. SHE IS GREATLY CONCERNED ABOUT THE CHANGE IN HIS MENTATION. SHE REPORTS THAT SHE SPOKE TO HIM ON 05/08. HE WAS IN THE PROCESS OF SELLING HIS HOME TO MOVE DOWN TO [place]. SHE REPORTS THAT HE WAS COMPLETELY LUCID AT THIS TIME. SHE WOULD GREATLY APPRECIATE A PHONE CALL FROM A PHYSCIAN ABOUT THE PLAN.
--- NOTE | 2022-05-31 18:10 | NUR ---
END OF SHIFT SUMMARY: PATIENT DENIED PAIN OR DISCOMFORT THROUGHOUT THE SHIFT. PATIENT DOES NOT CALL APPROPRIATELY, BUT IS CALM, COOPERATIVE AND REDIRECTABLE. PATIENT HAS AN ADEQUATE APPETITE. PATIENT CONTINUES TO HAVE GAS AND LOOSE FLAKES FOR BM. PATIENT TOLERATING BANANA FLAKES WELL (HE LIKES IT MIXED IN ORANGE JUICE). PATIENT IS STEADY ON HIS FEET BUT WILL REACH FOR FURNITURE RATHER THAN USING THE WALKER. AT TIMES, PATIENT CONTINUES TO BECOME TACHY IN THE 170S WITH ACTIVITY. PATIENT RECOVERS QUICKLY WITH REST. PATIENT DENIES SHORTNESS OF BREATH, DIZZINESS, OR CHEST PAIN WITH ACTIVITY. HELD CAFFINATED BEVERAGES. SPOKE WITH PATIENT'S DAUGHTER (LISA: [phone]), SEE NURSES NOTE. SHE WOULD GREATLY APPRECIATE A PHONE CALL FROM THE HOSPITALIST TOMORROW.
--- NOTE | 2022-06-01 05:09 | NUR ---
SHIFT SUMMARY; THE PT WAS AXO X2-3 THIS PM. THE PT RESTED THE MAJORITY OF THE NIGHT. THE PT DID ATTEMPT TO GET OUT OF BED MULTIPLE TIMES, HE CAN BE IMPULSIVE. THE BED ALARM IS ON. THE PATIENT IS PLEASANTLY REDIRECTABLE. TELE IS IN PLACE, A-FIB IN THE 'S. THE PT DID HAVE A 5 BEAT RUN OF V-TACH AT 0220, BUT WAS ASYMPTOMATIC. HOME MEDS HAVE BEEN RECONCILLED BY DAYSHIFT RN AND THE PT DOES TAKE DIGOXIN AND METOPROLOL AT HOME USUALLY, WILL RELAY TO DAYSHIFT RN TO NOTIFY THE MD. PTS DAUGHTER WILL BE HERE THURSDAY TO AIDE IN THE PROCESS OF PLACEMENT FOR THE PT. CURRRENTLY THE PT IS SLEEPING IN BED WITH THE BED IN THE LOWEST POSITION, THE BED ALARM ON AND THE CALL LIGHT AT BEDSIDE. THE PT DENIES ANY PAIN, SOB, CHEST PAIN/PRESSURE THIS SHIFT.
[2022-06-01 08:24] LABS: Bun/Creatinine Ratio 15.1 (12.0-20.0); Calcium, Blood 8.6 mg/dL (8.5-10.1); Creatinine, Blood 1.06 mg/dL (0.60-1.20); Potassium, Blood 4.2 mmol/L (3.5-5.5)
--- NOTE | 2022-06-01 18:23 | NUR ---
SHIFT SUMMARY PT IS ALERT TO SELF AND FAMILY, AND OCCASSIONALLY PLACE. MENTATION WAXES AND WANES. AT ONE POINT, HE THOUGHT THIS WAS A BASE AND HE WAS TRYING TO "GET OUT." HE HAS REMAINED PLEASANT AND COOPERATIVE WITH CARE THROUGH OUT THE SHIFT. HE AMBULATES TO THE BATHROOM WITH SBA FROM STAFF, FOR SAFETY DUE TO RECENT HX OF FALLS AND CLOSED FRACTURES TO SKULL BONES. BED ALARM ON FOR SAFETY. AWAITING REPEAT CT SCAN ON 06/03 TO SKULL FRACTURES. CONTINENT. ROOM AIR. IV TO RFA. BRUISING TO FACE AND SCATTERED ECHYMOSIS R/T FALLS. RATE CONTROLLED A-FIB. MONTORED WITH TELEMETRY.
--- NOTE | 2022-06-02 05:48 | NUR ---
SHIFT SUMMARY PT ALERT TO SELF- PT PLEASANTLY CONFUSED- PT AMBULATED TO BATHROOM WITH STAFF- PT REQUESTED TYLENOL FOR ACHES- BED LOW POSITION, CALL LIGHT WITHIN REACH, BED ALARM IN PLACE
--- NOTE | 2022-06-02 17:30 | NUR ---
DAYSHIFT SUMMARY No acute changes to patient status. Patient resting comfortably in room, OOB walks to bathroom with staff supervision. Patient forgets to call for help, bed alarm activated & audible for safety. Patient worked with therapy today. Vitals stable. Will continue plan of care, awaiting discharge planning.
--- NOTE | 2022-06-03 06:06 | NUR ---
SHIFT SUMMARY PT ALERT TO SELF - PT AMBULATED TO BR WITH SBA - PT TOLERATED WELL- PT HAD LOOSE STOOLS- PER PT HE HAS NO COLON AND SUFFERS FROM CHRONIC DIARRHEA- PT SAT UP IN BED AND FED SELF BANANA FLAKES IN VANILLA PUDDING- PT SITS UP TO SIDE OF BED AND ALARM OR CAMERA INDUSTRIAL SALES ENGINEER NOTIFIES STAFF-0600 RADIOLOGY CAME AND TOOK PT FOR CT SCAN VIA WC-BED LOW POSITION, CALL LIGHT WITHIN REACH, BED ALARM IN PLACE
[2022-06-03] MEDS ORDERED: B-1100 M1 PO (12:01)
[2022-06-03] MEDS ORDERED: Hair, Skin & N1 EACH PO (12:01)
--- NOTE | 2022-06-03 16:31 | NUR ---
DAYSHIFT SUMMARY Patient doing well, today patient remembered to call nurse before getting out of bed. Ambulating to bathroom independently, steady gait. Vitals stable, plan is to discharge home today with daughter. MD reviewed discharge plan with daughter, medications faxed to [facility]. Daughter verbalized understanding. Removed IV. Retrieved patients wallet from lockbox and gave to daughter. Patient left unit at 1620.
== END 2022-06-03 16:22 | disposition home health service (06) | DRG 91 ==
LOC: ER 14:46 → MEDS 20:23
PROVIDERS: Hospitalist; Student in an Organized Health Care Education/Training Program; ADMIT Internal Medicine
PROC: HZ2ZZZZ Detoxification Services for Substance Abuse Treatment (ICD-10-PCS; principal; 2022-05-27)
DX: G92.8 Other toxic encephalopathy (principal); S06.330A Contusion and laceration of cerebrum, unspecified, without loss of consciousness, initial encounter; N17.9 Acute kidney failure, unspecified; S02.32XA Fracture of orbital floor, left side, initial encounter for closed fracture; S02.0XXA Fracture of vault of skull, initial encounter for closed fracture; E87.20 Acidosis, unspecified; N39.0 Urinary tract infection, site not specified; I48.20 Chronic atrial fibrillation, unspecified; F10.231 Alcohol dependence with withdrawal delirium; S02.2XXA Fracture of nasal bones, initial encounter for closed fracture; F03.90 Unspecified dementia, unspecified severity, without behavioral disturbance, psychotic disturbance, mood disturbance, and anxiety; E86.0 Dehydration; I10 Essential (primary) hypertension; K21.9 Gastro-esophageal reflux disease without esophagitis; B95.7 Other staphylococcus as the cause of diseases classified elsewhere; Z87.891 Personal history of nicotine dependence; Z87.19 Personal history of other diseases of the digestive system; Z88.8 Allergy status to other drugs, medicaments and biological substances; Z79.82 Long term (current) use of aspirin; Z79.899 Other long term (current) drug therapy; Z90.89 Acquired absence of other organs; Z98.890 Other specified postprocedural states; Z91.14 Patient's other noncompliance with medication regimen; W18.39XA Other fall on same level, initial encounter; Y92.009 Unspecified place in unspecified non-institutional (private) residence as the place of occurrence of the external cause
CPT/HCPCS: 36415; 51702; 70450; 71046; 76770; 80048; 80053; 81001; 82550; 83735; 84100; 85025; 85610; 85730; 87077; 87086; 87186; 87507; 93005; 93010; 96361-59; 96374-59; 97116; 97129; 97130; 97162; 97165; 97530; 99285-25; A9270; J0696; J1650; J3411; J7030; J7050; J7120